=== PATIENT | male | born 1945 | race Caucasian/White ===

== ENCOUNTER → 2018-08-05 | Outpatient (CLI) | payer MEDICARE, OTHER ==
--- NOTE | 2018-08-05 10:56 | 2DMMODE ---
[facility] [address] [place] [address] 2 D/M-MODE ECHOCARDIOGRAM Name: JESUSDEREKJAYNE Room: [facility]#: [id number] Admission: 08/05/18 Attend Phys: Robin Hernandze, Discharge: Date of : 49 Date of Service: 08/05/18 1056 Report #: [id number] THIS REPORT FOR: //name// APPROVED REPORT Study performed: 08/05/2018 08:10:26 EXAM: Limited 2D Echocardiogram Patient Location: Out-Patient BSA: 1.78 HR: 55 bpm BP: 121/75 mmHg Other Information Study Quality: Good Indications Dyspnea 2D Dimensions Ascending Ao: 40.55 (22-36mm) Left Ventricle The left ventricle is normal size. There is normal LV segmental wall motion. There is normal left ventricular wall thickness. The left ventricular systolic function is normal. The left ventricular ejection fraction is within the normal range. LVEF is 60-65%. Right Ventricle The right ventricle is normal size. The right ventricular systolic function is normal. Atria The left atrium size is normal. The right atrium size is normal. Aortic Valve The Aortic valve is sclerotic. Mitral Valve The mitral valve is normal in structure. Tricuspid Valve The tricuspid valve is normal in structure. [place] [address] 2 D/M-MODE ECHOCARDIOGRAM Name: JESUSDEREKJAYNE Room: [facility].#: [id number] Admission: 08/05/18 Attend Phys: Robin Hernandez, Discharge: Date of : 49 Date of Service: 08/05/18 1056 Report #: [id number] Pulmonic Valve The pulmonary valve is normal in structure. Great Vessels The aortic root is normal in size. Ascending aorta is dilated. Pericardium There is no pericardial effusion. <Conclusion> LVEF is 60-65%. The Aortic valve is sclerotic. Ascending aorta is dilated. <ELECTRONICALLY SIGNED> By: Justus Martin MD, FACC 08/05/186 55 Justus Martin MD, FACC /INF
== END ==
LOC: M.CRD 07:47
DX: I35.8 Other nonrheumatic aortic valve disorders (principal); R06.02 Shortness of breath; R07.89 Other chest pain